=== PATIENT | female | born 1960 | race Caucasian/White ===

== ENCOUNTER 2016-06-28 11:51 | Emergency (ER) | payer MEDICARE ==
[2016-06-28 11:58] VITALS: BP 117/52
--- NOTE | 2016-06-28 12:14 | ERNOTE ---
Medical Problem HPI - General Chief Complaint: General Assessment Time Seen by Provider: 06/28/16 12:01 Source: patient Exam Limitations: no limitations - Immun/Allergies/Home Medications Immunizations: IMMUNIZATION HX Immunizations Up to Date Yes History of Influenza Vaccine Yes Hx Pneumococcal Vaccination No Allergies/Adverse Reactions: Allergies codeine [Codeine] Allergy (Mild, Verified 06/28/16 11:59) itchy meloxicam Allergy (Verified 06/28/16 11:59) Swelling of Face tramadol Allergy (Verified 06/28/16 11:59) Home Medications: HOME MEDICATIONS Gabapentin [Neurontin] 300 mg PO TID 01/02/14 [Last Taken Unknown] Insul NPH Hu Rec/Ins Rg Hu Rec [Novolin 70/30 100U/ml] 60 units SQ BID 01/02/14 [Last Taken Unknown] Levothyroxine Sodium [Synthroid] 25 mcg PO DAILY 01/02/14 [Last Taken Unknown] Simvastatin [Zocor] 80 mg PO DAILY 01/02/14 [Last Taken Unknown] Valsartan [Diovan] 80 mg PO DAILY 01/02/14 [Last Taken Unknown] Amitriptyline HCl [Elavil] 75 mg PO HS 03/17/14 [Last Taken Unknown] Insulin Glargine,Hum.rec.anlog [Lantus] 50 units SC HS 03/17/14 [Last Taken Unknown] Ibuprofen [Motrin] 800 mg PO TID PRN #60 tab 02/19/16 [Last Taken Unknown] Novolin 70/30 05/03/16 [Last Taken Unknown] - History of Present History Narrative: Presents with slurred speech and feeling as though she can't use right side of her body very well. The onst of symptoms was approximately 24 hours ago and the daughter feels that she is possibly getting worse. She states that she had a similar reaction the last time she took tramadol however she wanted to try one more time because she was in pain. The daughter feels that with each dose of tramadol that her mother takes the symptoms appear to be worsening. Date (Duration): 06/27/16 Timing: constant Severity: mild Review of Systems - Review of Systems Constitutional: Present: See HPI EYE: Present: no symptoms reported ENT: Present: no symptoms reported Respiratory: Present: no symptoms reported Cardiology: Present: no symptoms reported Gastrointestinal/Abdominal: Present: no symptoms reported Genitourinary: Present: no symptoms reported Musculoskeletal: Present: no symptoms reported Skin: Present: no symptoms reported Neurological: Present: See HPI Endocrine: Present: no symptoms reported Hematologic/Lymphatic: Present: no symptoms reported Psych: Present: no symptoms reported - Patient's Past Medical History Patient History - Medical: Chronic Pain, Diabetes Type 1 Patient History - Cardiac/Respiratory: No pertinent hx Patient History - Cancer: No Hx of Cancer Patient History - Surgical Procedures: Back Surgery, Cholecystectomy, Hysterectomy, Other Patient History - Other: None LMP (females 10-50): Menopausal - Social History Living Situations: home Abuse History: No History of abuse Psych History: No pertinent hx Smoking Status: Current every day smoker Have you smoked in the past 12 months: Yes Alcohol Use: none Drug Use: none - Immunizations Immunizations Up to Date: Yes Hx Pneumococcal Vaccination: No History of Influenza Vaccine: Yes Physical Exam - Physical Exam General Appearance: Present: wd/wn, alert, mild distress Eye Exam: Normal inspection: bilateral, PERRL: bilateral Ears, Nose, Throat: Present: normal ENT inspection, H, normal pharynx Neck: Present: normal inspection, nontender Respiratory: Present: no respiratory distress, normal breath sounds, no accessory muscle use, chest nontender, lungs clear Cardiovascular/Chest: Present: regular rate, rhythm, no murmur, normal peripheral pulses Gastrointestinal/Abdominal: Present: normal bowel sounds, nontender, nondistended, soft, no organomegaly Rectal Exam: Present: deferred Back Exam: Present: normal inspection, normal range of motion Extremity Exam: Present: normal inspection, non-tender, no edema, normal range of motion Neurological Exam: Present: alert, oriented, normal mood/affect, other - negative HINTS test Skin Exam: Present: normal color, warm/dry Lymphatic Exam: Present: no adenopathy ED Progress - Results and Orders Patient's Lab Results:: I have reviewed the patient's lab results. - Vital Signs Patient's Vital Signs:: I have reviewed the patient's vital signs. Vital Signs: Vital Signs 06/28/16 11:53 Pulse Rate 88 Respiratory 10 L Rate Blood Pressure 117/52 O2 Sat by Pulse 94 Oximetry - EKG EKG: NSR EKG read: Interp. by or - CT/Ultrasound CT/Ultrasound Narrative: CT results were reviewed - Progress/Reassessment Chief Complaint: General Assessment Progress:: Improved Plan - Plan Plan: Patient appears to be reacting to the combination of Xanax and tramadol. Going to have the patient stop the tramadol and decrease the Xanax now to 3 times a day and start weaning herself off of that upon consultation with the prescribing physician. At this point patient appears to be having medication reactions. Departure - Departure Clinical Impression: Medication reaction Disposition: Home self-care Condition: Good Instructions: Drug Allergy, [id number] Referrals: Timothy Hodge MD [Primary Care Provider] -
[2016-06-28 13:03] LABS: Hematocrit 41.2 % (37.0-47.0); Hemoglobin 13.9 gm/dL (12.5-16.0); Mean Cell Volume 91.2 fl (78-100); Mean Corpuscular Hemoglobin 30.8 pg (27-31); Mean Corpuscular Hgb Conc 33.7 g/dl (32-36); Neutrophil # 4.5 K/mm3 (1.3-6.0); Neutrophil % 44.4 % (42-75.0); Platelet Count 178 K/mm3 (150-450); Red Blood Count 4.52 M/mm3 (4.2-5.4); Red Cell Distribution Width 14.1 % (11.5-14.0); White Blood Count 10.1 K/mm3 (4.0-10.5)
--- OUTSIDE RECORDS SUMMARY | 2016-06-28 13:05 | XMS REPORT | Continuity of Care Document ---
:1960 Author Organization [facility] ([facility]) Address [address] [place] [address] Phone [phone] Care Team Providers Name Role Phone Timothy Bridges Primary Care Provider [phone] Source Comments This disclosure is being made pursuant to the Care Everywhere program, applicable federal and state laws, and may not contain all informaitonavailable regarding this patient.[facility] ([facility]) Active Allergies and Adverse Reactions Allergen Noted Date Severity Reactions Comments Codeine Pruritus Current Medications Prescription Sig. Disp. Refills Start Date End Date Status insulin aspart mix Inject Active (NovoLOG 70-30 subcutaneously 2 FLEXPEN) 100 unit/mL times daily with injection pen meals. insulin glargine Inject Active (LanTUS SOLOSTAR) subcutaneously 2 100 unit/mL (3 mL) times daily. injection pen insulin aspart Inject Active (NovoLOG) 100 subcutaneously 3 unit/mL injection times daily before vial meals. multivitamin with Take 1 tablet by Active minerals tablet mouth daily. valsartan 80 mg Take 80 mg by mouth Active tablet daily. simvastatin 80 mg Take 80 mg by mouth Active tablet every evening. lamoTRIgine 150 mg Take 150 mg by mouth Active tablet daily. omeprazole 20 mg Take 20 mg by mouth Active enteric coated daily. capsule gabapentin 800 mg Take 800 mg by mouth Active tablet 3 times daily. ALPRAZolam 0.25 mg Take 0.25 mg by Active tablet mouth at bedtime as needed. dicloxacillin 500 mg Take 500 mg by mouth Active capsule 4 times daily. levothyroxine 50 mcg Take 50 mcg by mouth Active tablet every morning before breakfast. ziprasidone 20 mg Take 20 mg by mouth Active capsule 2 times daily. ibuprofen 800 mg Take 1 tablet (800 20 tablet 0 09/22/2015 Active tablet mg total) by mouth every 6 hours as needed for Pain. DO NOT EXCEED 3,200 MG IBUPROFEN PER DAY FROM ALL SOURCES chlorhexidine 0.12 % Rinse with 10 ML for 473 mL 0 09/22/2015 Active oral rinse 30 seconds twice daily for 10 days. Swish and spit out excess. Nothing by mouth for 30 minutes. HYDROcodone-acetamin Take 1 tablet by 20 tablet 0 09/22/2015 Active ophen 5-325 mg per mouth every 4 hours tablet as needed for Pain. DO NOT EXCEED 3,000 MG ACETAMINOPHEN PER DAY FROM ALL SOURCES Active Problems Problem Noted Date Dental caries 09/22/2015 Degeneration of intervertebral disc, site unspecified 01/09/2002 Social History Tobacco Use Types Packs/Day Years Used Date Current Every Day Smoker Cigarettes 1 34 Smokeless Tobacco: Never Used Last Filed Vital Signs Vital Sign Reading Time Taken Blood Pressure 129/67 09/22/2015 2:08 PM CDT Pulse 104 09/22/2015 2:08 PM CDT Temperature 37 C (98.6 F) 09/22/2015 1:28 PM CDT Respiratory Rate - - Height 1.65 m (5' 4.96") 01/09/2002 2:49 PM CDT Weight 88.597 kg (195 lb 5.1 oz) 01/09/2002 2:49 PM CDT Body Mass Index 32.54 01/09/2002 2:49 PM CDT Oxygen Saturation - - Plan of Care Health Maintenance Due Date Last Done Comments HCV Screening 1960 Hepatitis B Vaccine (1 of 3 - Primary Series) 1960 Tdap Vaccine 1972 Lipid Disorder Screening 10/21/1979 MMR Vaccine 10/21/1979 Td Vaccine 10/21/1979 Pneumococcal Vaccine (1 of 1 - PPSV23) 1980 Cervical Cancer Screening 10/21/1991 Mammogram 2001 Colonoscopy 2011 Influenza Vaccine: Seasonal (#1) 11/02/2015 Results from Last 3 Months Not on file
[2016-06-28 13:12] LABS: INR 0.99 INR (0.90-1.10); Prothrombin Time (Patient) 10.3 Seconds (9.4-11.4)
[2016-06-28 13:15] LABS: Albumin * 3.3 gm/dl (3.4-5.0); Anion Gap 12.5 mmol/L (6.8-13.8); BUN/Creatinine Ratio 16.7 (9.0-21.6); Bilirubin, Total 0.3 mg/dL (0.0-1.1); Ca. Corrected For Albumin 9.2 mg/dL (8.4-10.2); Carbon Dioxide 30.7 mmol/L (24-32.6); Potassium 4.2 mmol/L (3.4-4.6)
[2016-06-28 13:27] LABS: Urine Bilirubin Negative (NEGATIVE); Urine Blood Negative /ul (NEGATIVE); Urine Ketone Negative (NEGATIVE); Urine Protein 15 mg/dL (NEGATIVE); Urine Urobilinogen Normal (NORMAL)
[2016-06-28 13:35] LABS: Urine Appearance Slightly Cloudy; Urine Bacteria 3+; Urine Color Yellow; Urine Nitrite Positive (NEGATIVE); Urine RBC None Seen /hpf (0-5)
[2016-06-28 13:45] LABS: Cocaine Ur Negative (NEGATIVE); Urine Barbiturate Negative (NEGATIVE); Urine Opiates Negative (NEGATIVE); Urine PCP Negative (NEGATIVE); Urine THC Negative (NEGATIVE)
[2016-06-28 13:46] LABS: Urine Benzodiazepines Positive (NEGATIVE)
== END 2016-06-28 14:15 | disposition home or self-care (01) ==
LOC: ER 11:51
DX: T40.4X5A Adverse effect of other synthetic narcotics, initial encounter (principal); T42.4X5A Adverse effect of benzodiazepines, initial encounter; Y92.9 Unspecified place or not applicable; Z72.0 Tobacco use

== ENCOUNTER 2016-08-29 08:13 | Emergency (ER) | payer MEDICARE ==
[2016-08-29 08:30] VITALS: BP 174/93
--- OUTSIDE RECORDS SUMMARY | 2016-08-29 09:10 | XMS REPORT | Continuity of Care Document ---
:1960 Author Organization [facility] ([facility]) Address [address] [place] [address] Phone [phone] Care Team Providers Name Role Phone Timothy Bridges Primary Care Provider [phone] Source Comments This disclosure is being made pursuant to the Care Everywhere program, applicable federal and state laws, and may not contain all informaitonavailable regarding this patient.[facility] ([facility]) Active Allergies and Adverse Reactions Allergen [...]
--- NOTE | 2016-08-29 09:18 | ERNOTE ---
Medical Problem HPI - Narrative Date of Service: 08/29/16 - General Chief Complaint: General Assessment Time Seen by Provider: 08/29/16 08:57 Source: patient Exam Limitations: no limitations - Immun/Allergies/Home Medications Immunizations: IMMUNIZATION HX Immunizations Up to Date Yes History of Influenza Vaccine Yes Hx Pneumococcal Vaccination No Allergies/Adverse Reactions: Allergies codeine [Codeine] Allergy (Mild, Verified 06/28/16 11:59) itchy meloxicam Allergy (Verified 06/28/16 11:59) Swelling of Face tramadol Allergy (Verified 06/28/16 11:59) Home Medications: HOME MEDICATIONS Gabapentin [Neurontin] 300 mg PO TID 01/02/14 [Last Taken 08/29/16 06:30] Levothyroxine Sodium [Synthroid] 25 mcg PO DAILY 01/02/14 [Last Taken 08/29/16 06:00] Simvastatin [Zocor] 80 mg PO DAILY 01/02/14 [Last Taken 08/28/16 21:00] Valsartan [Diovan] 80 mg PO DAILY 01/02/14 [Last Taken 08/29/16 06:00] Amitriptyline HCl [Elavil] 75 mg PO HS 03/17/14 [Last Taken 08/28/16 21:00] Insulin Glargine,Hum.rec.anlog [Lantus] 20 units SC BID 03/17/14 [Last Taken 06:00] Ibuprofen [Motrin] 800 mg PO TID PRN #60 tab 02/19/16 [Last Taken 08/29/16 05:30 ] ALPRAZolam [Xanax] 0.25 mg PO TID PRN 08/29/16 [Last Taken 08/28/16 12:00] Insul NPH Hu Rec/Ins Rg Hu Rec [Novolin 70/30] 65 units SC BID 08/29/16 [Last Taken 08/29/16 06:00] Insulin Aspart [Novolog] 25 units SC ACHS PRN 08/29/16 [Last Taken 08/28/16 18: 00] Sulfacetamide Sodium 2 drop EACHEYE Q4H #1 bottle 08/29/16 [Last Taken Unknown] - History of Present History Narrative: Woke up this morning with left eye painful, watery, mucusy, not ictchy, blurry, no history of injury, doesn't wear contacts. Timing: constant Severity: mild Modifying Factors - (Improves): Present: other - nothing Modifying Factors - (Worsens): Present: movement Review of Systems - Review of Systems Constitutional: Present: no symptoms reported EYE: Present: see HPI ENT: Present: no symptoms reported Respiratory: Present: no symptoms reported Cardiology: Present: no symptoms reported Gastrointestinal/Abdominal: Present: no symptoms reported Genitourinary: Present: no symptoms reported Musculoskeletal: Present: no symptoms reported Skin: Present: no symptoms reported Neurological: Present: no symptoms reported Endocrine: Present: no symptoms reported Hematologic/Lymphatic: Present: no symptoms reported Psych: Present: no symptoms reported All Other Systems: All systems neg except as marked - Patient's Past Medical History Patient History - Medical: Chronic Pain, Diabetes Type 1 Patient History - Cardiac/Respiratory: No pertinent hx Patient History - Cancer: No Hx of Cancer Patient History - Surgical Procedures: Back Surgery, Cholecystectomy, Hysterectomy, Other Patient History - Other: None - Social History Living Situations: home Abuse History: No History of abuse Psych History: No pertinent hx Alcohol Use: none Drug Use: none - Immunizations Immunizations Up to Date: Yes Hx Pneumococcal Vaccination: No History of Influenza Vaccine: Yes Physical Exam - Physical Exam General Appearance: Present: wd/wn, alert, no apparent distress Eye Exam: Normal inspection: bilateral, EOMI: left, Eye drainage: left, Other: left - red conjuctiva, mucopurulent drainage Ears, Nose, Throat: Present: normal ENT inspection Neck: Present: normal inspection Respiratory: Present: no respiratory distress Cardiovascular/Chest: Present: regular rate, rhythm Extremity Exam: Present: no edema Neurological Exam: Present: alert, oriented, normal mood/affect Skin Exam: Present: normal color, warm/dry ED Progress - Vital Signs Patient's Vital Signs:: I have reviewed the patient's vital signs. Vital Signs: Vital Signs 08/29/16 08:24 Temperature 36.5 C Pulse Rate 86 Respiratory 16 Rate Blood Pressure 174/93 O2 Sat by Pulse 98 Oximetry - Progress/Reassessment Chief Complaint: General Assessment Departure - Departure Clinical Impression: [place] eye disease of left eye Disposition: Home self-care Condition: Good Instructions: Bacterial Conjunctivitis, [id number] Additional Instructions: Call at 8 AM tomorrow and see Dr. Bridges tomorrow afternoon. Referrals: Timothy Hodge MD [Primary Care Provider] - Prescriptions: Sulfacetamide Sodium 2 drop EACHEYE Q4H #1 bottle
== END 2016-08-29 09:00 | disposition home or self-care (01) ==
LOC: ER 08:13
DX: H10.022 Other mucopurulent conjunctivitis, left eye (principal); G89.29 Other chronic pain; E10.9 Type 1 diabetes mellitus without complications; Z79.4 Long term (current) use of insulin